=== PATIENT | female | born 1995 | race Two or more races ===

== ENCOUNTER 2017-08-18 19:58 | Emergency (ER) | payer SELFPAY ==
--- NOTE | 2017-08-18 20:04 | PDOC ---
Rapid Medical Evaluation Time Seen by Provider: 08/18/17 19:59 Medical Evaluation: Allergies Allergy/AdvReac Type Severity Reaction Status Date / Time No Known Allergies Allergy Verified 05/28/16 00:11 08/18/17 19:59 I have performed a brief in -person evaluation of this patient. The patient presents with a chief complaint of: subjective fever (x3d/took tylenol yesterday) and SOB No h/o Asthma. Feeling "nervous". LMP: 07/18/2017 Pertinent physical exam findings: Cardiac: RRR, S1, S2 L/S CTAB I have ordered the following: upreg The patient will proceed to the ED for further evaluation.
[2017-08-18 20:05] VITALS: BP 142/99; PULSE 97; TEMP 98.7; BMI 26.4
[2017-08-18 20:20] LABS: URINE APPEARANCE CLEAR; URINE BILIRUBIN NEGATIVE (NEGATIVE); URINE BLOOD NEGATIVE (NEGATIVE); URINE COLOR LTYELLOW; URINE GLUCOSE (UA) NEGATIVE (NEGATIVE); URINE KETONE NEGATIVE (NEGATIVE); URINE NITRITE NEGATIVE (NEGATIVE); URINE PROTEIN NEGATIVE (NEGATIVE); URINE UROBILINOGEN NEGATIVE mg/dL (0.2-1.0)
--- NOTE | 2017-08-18 20:25 | PDOC ---
History of Present Illness - General Chief Complaint: Respiratory Stated Complaint: S.O.B Time Seen by Provider: 08/18/17 19:59 History Source: Patient Exam Limitations: No Limitations - History of Present Illness Initial Comments: 08/18/17 20:21 22 yr female states she woke up today from sleep feeling short of breath. Pt states yesterday "felt hot" took tylenol. Pt is c/o feeling anxious, has had this in the past. LMP one month ago. No PMHX no surgery or recent travel, no hormonal control. Timing/Duration: reports: constant Severity: reports: mild Possible Cause: Yes: occasional episodes Associated Symptoms: reports: fever/chills. denies: dizziness, earache Past History - Past Medical History Allergies/Adverse Reactions: Allergies Allergy/AdvReac Type Severity Reaction Status Date / Time No Known Allergies Allergy Verified 08/18/17 20:04 Home Medications: Ambulatory Orders Alprazolam [Xanax] 0.25 mg PO Q8H PRN #9 tablet MDD 2.0mg 08/18/17 COPD: No Other medical history: denies - Suicide/Smoking/Psychosocial Hx Smoking History: Never smoked Number of Cigarettes Smoked Daily: 0 Hx Alcohol Use: No Drug/Substance Use Hx: No Respiratory Specific PMHX - Complaint Specific PMHX Angina: No Bronchitis: No Pneumonia: No Pulmonary Embolus: No TB (Tuberculosis): No Review of Systems - Review of Systems Able to Perform ROS?: Yes Is the patient limited [place]er proficient: No Constitutional: Yes: Symptoms Reported, Fever HEENTM: No: Symptoms Reported Respiratory: Yes: SOB at Rest Cardiac (ROS): No: Symptoms Reported ABD/GI: No: Symptoms Reported : No: Symptoms Reported Musculoskeletal: No: Symptoms Reported Integumentary: No: Symptoms Reported Neurological: No: Symptoms reported Psychiatric: Yes: Anxiety *Physical Exam - Vital Signs Last Vital Signs Temp Pulse Resp BP Pulse Ox 98.7 F 97 H 18 142/99 99 08/18/17 20:00 08/18/17 20:00 08/18/17 20:00 08/18/17 20:00 08/18/17 20:00 - Physical Exam General Appearance: Yes: Nourished, Appropriately Dressed HEENT: positive: EOMI, FLORES[place], Normal ENT Inspection, TMs Normal, Pharynx Normal Neck: positive: Supple. negative: Tender Respiratory/Chest: positive: Lungs Clear, Normal Breath Sounds. negative: Chest Tender Gastrointestinal/Abdominal: positive: Normal Bowel Sounds, Soft Musculoskeletal: positive: Normal Inspection Extremity: positive: Normal Capillary Refill, Normal Inspection, Normal Range of Motion Integumentary: positive: Normal Color, Dry, Warm Neurologic: positive: Fully Oriented, Alert, Normal Mood/Affect, Normal Response , Motor Strength 5/5, Other (anxious ) Medical Decision Making - Medical Decision Making 08/18/17 20:24 cc: anxious, feels SOB , felt fever yesterday none today took tylenol today no chest pain no leg pain or swelling no PE risk factors will check urine preg LMP 07/18/17 08/18/17 21:08 WELLS criteria for PE 0.0 points Low risk group: 1.3% chance of PE in an ED population. pt and her sister have been given the discharge instructions all questions asked and answered, pt is satisfied with the plan of care pt feels better on discharge. *DC/Admit/Observation/Transfer Diagnosis at time of Disposition: Anxiety - Discharge Dispostion Disposition: HOME Condition at time of disposition: Good - Prescriptions Prescriptions: Alprazolam [Xanax] 0.25 mg PO Q8H PRN #9 tablet MDD 2.0mg PRN Reason: Anxiety - Referrals Referrals: Dane Saavedra MD [Staff Physician] - - Patient Instructions Additional Instructions: get pleanty of rest this weekend take the xanax as prescribed do not drink alcohol, operate machinery or drive while taking the xanax follow with the provider listed below next week for follow up Return to ER if any worsening symptoms - Post Discharge Activity
[2017-08-18] MEDS ORDERED: ALPRAZolam 0.25 MG TABLET PO STA (21:02)
[2017-08-18] MEDS ORDERED: ALPRAZolam 0.25 MG TABLET ONE (21:05)
[2017-08-18 22:45] LABS: URINE LEUK ESTERASE Negative (NEGATIVE)
== END 2017-08-18 21:10 | disposition home or self-care (01) ==
LOC: JERFT 19:58
DX: F41.9 Anxiety disorder, unspecified (principal)
CPT/HCPCS: 81003; 84703; 99281-25

== ENCOUNTER 2017-09-07 17:48 | Emergency (ER) | payer OTHER ==
[2017-09-07 17:57] VITALS: BP 130/83; PULSE 69; TEMP 98.2; BMI 26.4
--- NOTE | 2017-09-07 17:57 | PDOC ---
Rapid Medical Evaluation Chief Complaint: Vaginal Sxs Time Seen by Provider: 09/07/17 17:55 Medical Evaluation: Allergies Allergy/AdvReac Type Severity Reaction Status Date / Time No Known Allergies Allergy Verified 08/18/17 20:04 09/07/17 17:56 Pt presents with complaint of: low abd pain with vag bleed x 11 days, denies preg, - fibroids, endometriosis On brief exam: vss I have ordered the following: ua, upreg, cbc Pt will go to the Emergency Dept for further workup Discharge Disposition - Diagnosis Vaginal bleeding - Referrals - Patient Instructions - Post Discharge Activity
[2017-09-07 18:31] LABS: BASOPHIL 0.3 % (0-2.0); EOSINOPHIL 1.7 % (0-4.5); MCHC 33.5 g/dl (32.0-36.0); MEAN CELL VOLUME 86.6 fl (80-96); MEAN PLT VOLUME 8.5 fl (7.5-11.1); NEUTROPHILS 47.8 % (42.8-82.8); PLATELET COUNT 286 K/MM3 (134-434); RDW 12.6 % (11.6-15.6); WHITE BLOOD COUNT 7.6 K/mm3 (4.0-10.0)
--- NOTE | 2017-09-07 20:36 | PDOC ---
History of Present Illness - General Chief Complaint: Vaginal Sxs Stated Complaint: VAGINAL BLEEDING x11 days Time Seen by Provider: 09/07/17 17:55 - History of Present Illness Initial Comments: 09/07/17 20:29 22 F with no PMH presents to ER with vaginal spotting x 11 days. Pt states that she stopped taking her control pills last month and had a normal period on 07/26. This month, on 08/27, she started spotting and has continued to do so until today. She denies any abdominal pain. Denies lightheadedness/dizziness. Denies any vaginal discharge. Denies dysuria. Denies sexual activity. Past History - Past Medical History Allergies/Adverse Reactions: Allergies Allergy/AdvReac Type Severity Reaction Status Date / Time No Known Allergies Allergy Verified 09/07/17 17:57 Home Medications: Ambulatory Orders Alprazolam [Xanax] 0.25 mg PO Q8H PRN #9 tablet MDD 2.0mg 08/18/17 COPD: No - Reproductive History Is Patient Now?: No - Suicide/Smoking/Psychosocial Hx Smoking History: Never smoked Number of Cigarettes Smoked Daily: 0 Information on smoking cessation initiated: No Hx Alcohol Use: No Drug/Substance Use Hx: No Review of Systems - Review of Systems Comments:: 09/07/17 20:36 "GENERAL/CONSTITUTIONAL: No fever or chills. No weakness. HEAD, EYES, EARS, NOSE AND THROAT: No change in vision. No ear pain or discharge. No sore throat. CARDIOVASCULAR: No chest pain or shortness of breath. RESPIRATORY: No cough, wheezing, or hemoptysis. GASTROINTESTINAL: No nausea, vomiting, diarrhea or constipation. GENITOURINARY: +vaginal spotting, No dysuria, frequency, or change in urination. MUSCULOSKELETAL: No joint or muscle swelling or pain. No neck or back pain. SKIN: No rash NEUROLOGIC: No headache, vertigo, loss of consciousness, or change in strength/ sensation. ENDOCRINE: No increased thirst. No abnormal weight change. HEMATOLOGIC/LYMPHATIC: No anemia, easy bleeding, or history of blood clots. ALLERGIC/IMMUNOLOGIC: No hives or skin allergy. " *Physical Exam - Vital Signs Last Vital Signs Temp Pulse Resp BP Pulse Ox 98.2 F 69 18 130/83 100 09/07/17 17:55 09/07/17 17:55 09/07/17 17:55 09/07/17 17:55 09/07/17 17:55 - Physical Exam Comments: 09/07/17 20:36 "GENERAL: Awake, alert, and fully oriented, in no acute distress HEAD: No signs of trauma EYES: PERRLA, EOMI, sclera anicteric, conjunctiva clear ENT: Auricles normal inspection, hearing grossly normal, nares patent, oropharynx clear without exudates. Moist mucosa NECK: Nontender, no stepoffs, Normal ROM, supple, no lymphadenopathy, JVD, or masses LUNGS: Breath sounds equal, clear to auscultation bilaterally. No wheezes, and no crackles HEART: Regular rate and rhythm, normal S1 and S2, no murmurs, rubs or gallops ABDOMEN: Soft, nontender, normoactive bowel sounds. No guarding, no rebound. No masses : scant blood in vaginal vault, os closed, no CMT, no adnexal pain or masses EXTREMITIES: Normal range of motion, no edema. No clubbing or cyanosis. No cords, erythema, or tenderness NEUROLOGICAL: Cranial nerves II through XII intact. 5/5 strength and sensation in all extremities, Normal speech, normal gait SKIN: Warm, Dry, normal turgor, no rashes or lesions noted. " ED Treatment Course - LABORATORY CBC & Chemistry Diagram: 09/07/17 18:18 - ADDITIONAL ORDERS Additional order review: Laboratory Results 09/07/17 18:18 Urine HCG, Qual Negative 09/07/17 18:18 RBC 4.44 MCV 86.6 MCHC 33.5 RDW 12.6 MPV 8.5 Neutrophils % 47.8 D Lymphocytes % 42.1 H D Monocytes % 8.1 Eosinophils % 1.7 D Basophils % 0.3 Medical Decision Making - Medical Decision Making 09/07/17 20:37 22 F with vaginal spotting x 11 days after stopping her control pills last month. Pt HD stable with scant blood in vaginal vault. - CBC - UA, UPT 09/07/17 20:48 CBC,CMP WBC 7.6 K/mm3 (4.0-10.0) D 09/07/17 18:18 RBC 4.44 M/mm3 (3.60-5.2) 09/07/17 18:18 Hgb 12.9 GM/dL (10.7-15.3) 09/07/17 18:18 Hct 38.5 % (32.4-45.2) 09/07/17 18:18 MCV 86.6 fl (80-96) 09/07/17 18:18 MCH 29.0 pg (25.7-33.7) 09/07/17 18:18 MCHC 33.5 g/dl (32.0-36.0) 09/07/17 18:18 RDW 12.6 % (11.6-15.6) 09/07/17 18:18 Plt Count 286 K/MM3 (134-434) 09/07/17 18:18 MPV 8.5 fl (7.5-11.1) 09/07/17 18:18 Neutrophils % 47.8 % (42.8-82.8) D 09/07/17 18:18 Lymphocytes % 42.1 % (8-40) H D 09/07/17 18:18 Monocytes % 8.1 % (3.8-10.2) 09/07/17 18:18 Eosinophils % 1.7 % (0-4.5) D 09/07/17 18:18 Basophils % 0.3 % (0-2.0) 09/07/17 18:18 UA unremarkable, UPT negative. Pt clinically stable for DC. *DC/Admit/Observation/Transfer Diagnosis at time of Disposition: Vaginal bleeding - Discharge Dispostion Disposition: HOME - Referrals Referrals: Erum Daugherty MD [Primary Care Provider] - Benji Adams MD [Staff Physician] - - Patient Instructions Printed Discharge Instructions: DI for Dysmenorrhea Additional Instructions: Follow up with your primary doctor tomorrow as scheduled for a refill on your control pills. Call the number provided to make an appointment with a smoke and flame specialist if you continue to have vaginal spotting. If you experience worsening bleeding, pain, lightheadedness, or any other concerning symptoms, return to the ER immediately. - Post Discharge Activity - Attestations Physician Attestion: 09/07/17 20:50 I, Dr. Iain Lambert MD, attest that this document has been prepared under my direction and personally reviewed by me in its entirety. I further attest, that it accurately reflects all work, treatment, procedures and medical decision -making performed by me.
[2017-09-07 20:46] LABS: URINE APPEARANCE CLOUDY; URINE BILIRUBIN NEGATIVE (NEGATIVE); URINE BLOOD 3+ (NEGATIVE); URINE COLOR RED; URINE GLUCOSE (UA) NEGATIVE (NEGATIVE); URINE KETONE NEGATIVE (NEGATIVE); URINE NITRITE NEGATIVE (NEGATIVE); URINE PROTEIN 1+ (NEGATIVE); URINE UROBILINOGEN NEGATIVE mg/dL (0.2-1.0)
[2017-09-07 20:52] LABS: URINE MUCUS RARE; URINE RBC 5443 /hpf (0-3); URINE WBC 15 /hpf (3-5)
[2017-09-08 11:44] LABS: URINE LEUK ESTERASE Negative (NEGATIVE)
== END 2017-09-07 20:51 | disposition home or self-care (01) ==
LOC: JER 17:48
DX: N93.8 Other specified abnormal uterine and vaginal bleeding (principal)
CPT/HCPCS: 36415; 81003; 81015; 84703; 85025; 99282-25

== ENCOUNTER 2019-08-21 04:44 | Day surgery (SDC) | payer OTHER ==
[2019-08-20 09:53] VITALS: BMI 29.2
[2019-08-21] MEDS ORDERED: KETOROLAC TROMETHAMINE 30 MG/1 ML VIAL ONE (07:12)
[2019-08-21] MEDS ORDERED: DEXAMETHASONE SOD PHOSPHATE 4 MG/1 ML VIAL ONE (07:12)
[2019-08-21] MEDS ORDERED: MIDAZOLAM HCL 2 MG/2 ML SINGLE DOSE VIAL ONE ×2 (07:13)
[2019-08-21] MEDS ORDERED: PROPOFOL 20 ML ONE ×2 (07:13)
[2019-08-21] MEDS ORDERED: oxyCODONE HCL 5 MG TABLET PO PRN (07:31)
[2019-08-21] MEDS ORDERED: ONDANSETRON 4 MG/2 ML VIAL IVPUSH PRN (07:31)
[2019-08-21] MEDS ORDERED: LACTATED RINGERS SOLUTION 1,000 ML IV SCH (07:45)
--- NOTE | 2019-08-21 07:51 | HP ---
Admitting History and Physical - Admission Chief Complaint: Chemical History of Present Illness: 24 yo with missed is pre op for suction D&C. History Source: Patient Limitations to Obtaining History: No Limitations - Past Medical History ...LMP: 06/28/19 ...: Yes ...Para: 0 - Past Surgical History Past Surgical History: Yes: None - Smoking History Smoking history: Never smoked Aproximately how many cigarettes per day: 0 - Alcohol/Substance Use Hx Alcohol Use: No - Social History Usual Living Arrangement: Yes: Alone History of Recent Travel: No Home Medications - Allergies Allergies/Adverse Reactions: Allergies Allergy/AdvReac Type Severity Reaction Status Date / Time No Known Allergies Allergy Verified 08/21/19 07:02 - Home Medications Home Medications: Ambulatory Orders NK [No Known Home Medication] 08/20/19 Review of Systems - Review of Systems Constitutional: reports: No Symptoms Eyes: reports: No Symptoms HENT: reports: No Symptoms Neck: reports: No Symptoms Cardiovascular: reports: No Symptoms Respiratory: reports: No Symptoms Gastrointestinal: reports: No Symptoms Genitourinary: denies: Vaginal Bleeding Breasts: reports: No Symptoms Reported Musculoskeletal: reports: No Symptoms Integumentary: reports: No Symptoms Neurological: reports: No Symptoms Endocrine: reports: No Symptoms Hematology/Lymphatic: reports: No Symptoms Psychiatric: reports: No Symptoms Pain Intensity: 0 Physical Examination Vital Signs: Vital Signs Temperature 98.3 F 08/21/19 06:59 Pulse Rate 85 08/21/19 06:59 Respiratory Rate 20 08/21/19 06:59 Blood Pressure 113/73 08/21/19 06:59 O2 Sat by Pulse Oximetry (%) 100 08/21/19 06:51 Constitutional: Yes: Well Nourished Eyes: Yes: Conjunctiva Clear HENT: Yes: Atraumatic Neck: Yes: Supple Cardiovascular: Yes: Regular Rate and Rhythm Respiratory: Yes: Regular Gastrointestinal: Yes: Normal Bowel Sounds ...Rectal Exam: Yes: WNL Breast(s): Yes: WNL Musculoskeletal: Yes: WNL Extremities: Yes: WNL Neurological: Yes: Alert, Oriented ...Motor Strength: WNL Psychiatric: Yes: Alert, Oriented Problem List - Problems (1) Missed Problems reviewed: Yes Code(s): O02.1 - MISSED Assessment/Plan Missed Pre op for suction D&C Consent signed Anesthesia to see patient
--- NOTE | 2019-08-21 09:28 | OP ---
Operative Note - Note: Operative Date: 08/21/19 Pre-Operative Diagnosis: Missed AB Operation: Suction D&C Findings: POC Post-Operative Diagnosis: Same as Pre-op Surgeon: Felicitas Ambriz Anesthesia: General Specimens Removed: Product of conception Estimated Blood Loss (mls): 10
[2019-08-21 10:47] VITALS: PULSE 61
[2019-08-21 11:12] VITALS: BP 109/70; TEMP 97.9
--- NOTE | 2019-08-22 07:28 | OP ---
DATE OF OPERATION: 08/21/2019 PREOPERATIVE DIAGNOSIS: Missed . POSTOPERATIVE DIAGNOSIS: Missed . PROCEDURE PERFORMED: Suction dilatation and curettage. SURGEON: Felicitas Ambriz M.D. ANESTHESIA: General. COMPLICATIONS: None. ESTIMATED BLOOD LOSS: 10 mL. DESCRIPTION OF PROCEDURE: The patient was taken to the operating room, where general anesthesia was administered. The patient was then placed in the lithotomy position. She was then prepped and draped in the proper sterile fashion. A weighted speculum was placed in the vagina. The anterior lip of the cervix was grasped with a single-tooth tenaculum. The cervical os was then sequentially dilated with Ferris dilators. Then an 8-mm suction curette was gently introduced into the uterine cavity. The suction curette was then rotated to clear the uterus of all products of conception. Sharp curettage was then performed. Then the suction curette was reintroduced to clear the uterus of all remaining products of conception. Then the instruments were removed. The patient was taken out of the lithotomy position. She was taken to the PACU in stable condition. PATHOLOGY: Products of conception. Jenna RUSSELL/[id number]
--- NOTE | 2019-08-23 19:05 | PATH ---
Surgical Pathology Report Patient Name: LAST CINTRON Med. Rec. #: [id number] /Age/Gender: 1995 (Age: 24) / F Account: [id number] Location: [facility] Taken: 08/21/2019 Received: 08/21/2019 Reported: 08/23/2019 Physicians: Felicitas Ambriz M.D. Specimen(s) Received A: PRODUCTS OF CONCEPTION B: PRODUCTS OF CONCEPTION Clinical History Missed Final Diagnosis A. PRODUCTS OF CONCEPTION #1, SUCTION DILATION AND CURETTAGE: IMMATURE CHORIONIC VILLI, DECIDUA, AND GESTATIONAL ENDOMETRIUM CONSISTENT WITH PRODUCTS OF CONCEPTION. B. PRODUCTS OF CONCEPTION #2, SUCTION DILATION AND CURETTAGE: IMMATURE CHORIONIC VILLI CONSISTENT WITH PRODUCTS OF CONCEPTION. Electronically Signed Cheyenne Hubbard M.D. Gross Description A. Received fresh labeled "#1 products of conception," is a 5.0 x 3.5 x 0.5 cm aggregate of soria-red soft tissue fragments. No definite villous tissue or somatic tissue is identified. A contracts representative portion is submitted in one cassette. B. Received in formalin labeled "#2 products of conception," is a 3.0 x 2.0 x 0.6 cm aggregate of soria brown soft tissue fragments. Villous tissue is identified. No somatic tissue is identified. A contracts representative portion is submitted in one cassette. 08/22/2019 saudi08/22/2019
== END 2019-08-21 11:30 | disposition home or self-care (01) ==
LOC: JASU-SURG 04:44
PROVIDERS: ATTEND Obstetrics & Gynecology
PROC: 10D17ZZ Extraction of Products of Conception, Retained, Via Natural or Artificial Opening (ICD-10-PCS; principal; 2019-08-21 09:10)
DX: O02.1 Missed abortion (principal)
CPT/HCPCS: 88305-TC; 94760

== ENCOUNTER 2023-11-23 11:06 | Emergency (ER) | payer OTHER ==
[2023-11-23 11:12] VITALS: BP 145/87; PULSE 102; RESP 18; TEMP 97.1; BMI 29.5
== END 2023-11-23 13:26 | disposition home or self-care (01) ==
LOC: JER 11:06 → JERFT 11:06
DX: O99.891 Other specified diseases and conditions complicating pregnancy (principal); K08.89 Other specified disorders of teeth and supporting structures; Z3A.22 22 weeks gestation of pregnancy
CPT/HCPCS: 99282-25

== ENCOUNTER 2024-03-10 16:00 | Inpatient (IN) | payer OTHER ==
[2024-03-10 17:14] VITALS: BMI 34.7
[2024-03-10] MEDS: DINOPROSTONE 10 MG VAGINAL SUPPOSITORY VG ONE (18:00)
[2024-03-10 18:10] LABS: RETICULOCYTES 1.34 % (0.5-1.5)
[2024-03-10 18:30] LABS: URIC ACID 5.9 mg/dL (2.6-7.2)
[2024-03-11] MEDS ORDERED: BUTORPHANOL TARTRATE 2 MG/ML VIAL ONE (00:59)
[2024-03-11] MEDS ORDERED: PROMETHAZINE HCL 25 MG/1 ML VIAL ONE (00:59)
[2024-03-11] MEDS: ELECTROLYTE-148 SOLN 1,000 ML IV SCH (01:00)
[2024-03-11] MEDS: PROMETHAZINE HCL 25 MG/1 ML VIAL IVPB ONE (01:05)
[2024-03-11] MEDS: BUTORPHANOL TARTRATE 1 MG/ML VIAL IVPB ONE (01:05)
[2024-03-11] MEDS ORDERED: OXYTOCIN 30 UNITS in 0.9% NS 30 UNIT/500 ML INFUS.BAG IVPB ONE ×2 (08:33→16:05)
[2024-03-11] MEDS: OXYTOCIN 30 UNITS in 0.9% NS 30 UNIT/500 ML INFUS.BAG IVPB SCH (08:37)
[2024-03-11] MEDS ORDERED: morphine SULFATE/PF 1 MG/2 ML (2cc Syringe - QUVA) ONE (16:08)
[2024-03-11] MEDS ORDERED: FENTANYL CITRATE/PF 50 MCG/ML VIAL ONE (16:08)
[2024-03-11] MEDS ORDERED: ACETAMINOPHEN 325 MG TABLET (FP) PO PRN (16:27)
[2024-03-11] MEDS ORDERED: IBUPROFEN 600 MG TABLET (FP) PO PRN (16:27)
[2024-03-11] MEDS ORDERED: OXYTOCIN 10 UNITS/ML VIAL ONE (17:15)
[2024-03-11] MEDS ORDERED: ACETAMINOPHEN 1000 MG/100 ML BAG IVPB PRN (17:33)
[2024-03-11] MEDS ORDERED: oxyCODONE HCL 5 MG TABLET PO PRN (17:33)
[2024-03-11] MEDS: LABETALOL HCL 200 MG TABLET (FP) PO ONE (20:00)
[2024-03-11] MEDS ORDERED: LABETALOL HCL 200 MG TABLET (FP) ONE (20:02)
[2024-03-11] MEDS: IBUPROFEN 800 MG/8 ML IJ IVPB PRN (20:46)
[2024-03-11] MEDS: OXYTOCIN 20 UNITS in 0.9% NS 20 UNIT/1,000 ML INFUS.BAG IV SCH (20:46)
[2024-03-11] MEDS: ONDANSETRON 4 MG/2 ML VIAL IVPUSH PRN (20:46)
[2024-03-11] MEDS: SENNOSIDES/DOCUSATE COMBO (SENNA PLUS) TABLET (UD) PO SCH (21:45)
[2024-03-12 07:43] LABS: HEMATOCRIT 35.6 % (32.4-45.2); HEMOGLOBIN 11.8 GM/dL (10.7-15.3); LYMPH % 13.2 % (8-40); MCH 28.8 pg (25.7-33.7); MCHC 33.1 g/dl (32.0-36.0); MEAN CELL VOLUME 86.8 fl (80-96); MEAN PLT VOLUME 8.8 fl (7.5-11.1); MONO % 4.2 % (3.8-10.2); NEUT % 82.6 % (42.8-82.8); PLATELET COUNT 209 10^3/uL (134-434); RDW 15.8 % (11.6-15.6)
[2024-03-12 09:12] VITALS: RESP 18
[2024-03-12] MEDS: PRENATAL VITAMINS W/ FOLIC ACID TABLET (FP) PO SCH (09:46)
[2024-03-12] MEDS: SIMETHICONE 80 MG TAB.CHEW (FP) PO PRN (09:46)
[2024-03-12] MEDS: IBUPROFEN 600 MG TABLET (FP) PO PRN (16:54)
[2024-03-12] MEDS ORDERED: BISACODYL 10 MG SUPP.RECT RC PRN (17:34)
[2024-03-12] MEDS: ACETAMINOPHEN 500 MG TABLET (FP) PO PRN (21:41)
[2024-03-13 10:20] VITALS: BP 124/86; PULSE 85; TEMP 97.8
== END 2024-03-13 13:55 | disposition home or self-care (01) | DRG 540 ==
LOC: JLDR 16:00 → J3W 03-11 20:15
PROVIDERS: ADMIT Obstetrics & Gynecology; ATTEND Specialist
PROC: 10D00Z1 Extraction of Products of Conception, Low, Open Approach (ICD-10-PCS; principal; 2024-03-10)
PROC: 3E0P7VZ Introduction of Hormone into Female Reproductive, Via Natural or Artificial Opening (ICD-10-PCS; 2024-03-10)
DX: O13.4 Gestational [pregnancy-induced] hypertension without significant proteinuria, complicating childbirth (principal); O61.0 Failed medical induction of labor; Z3A.38 38 weeks gestation of pregnancy; Z37.0 Single live birth
CPT/HCPCS: 36415; 80053; 82570; 82977; 83010; 84156; 84450; 84460; 84550; 85025; 85027; 85032; 85045; 85610; 85730; 86780; 86850; 86900; 86901; 87389; 88307-TC

== ENCOUNTER 2024-06-12 14:08 | Emergency (ER) | payer OTHER ==
[2024-06-12 14:12] VITALS: BP 123/85; PULSE 68; RESP 18; TEMP 98.2; BMI 30.7
== END 2024-06-12 17:42 | disposition home or self-care (01) ==
LOC: JERFT 14:08
PROC: 0YQHXZZ Repair Right Lower Leg, External Approach (ICD-10-PCS; principal; 2024-06-12)
DX: S71.111A Laceration without foreign body, right thigh, initial encounter (principal); W26.8XXA Contact with other sharp object(s), not elsewhere classified, initial encounter
CPT/HCPCS: 99283-25